=== PATIENT | male | born 1955 | race American Indian/Alaskan Native ===

== ENCOUNTER 2021-08-18 14:49 | Emergency (ER) | payer MEDICARE ==
[2021-08-18 14:55] VITALS: BP 146/82
--- NOTE | 2021-08-18 15:36 | Emergency Department Report ---
ED Extremity Problem HPI - General Chief complaint: Extremity Injury, Lower Stated complaint: GOUT PAIN LEFT FOOT Time Seen by Provider: 08/18/21 15:30 Source: patient Mode of arrival: Ambulatory Limitations: No Limitations - History of Present Illness Initial comments: The patient was evaluated in the emergency department for symptoms described in the history of present illness. He/she was evaluated in the context of the global COVID-19 pandemic, which necessitated consideration that the patient might be at risk for infection with the virus that causes COVID-19. Institutional protocols and algorithms that pertain to the evaluation of patients at risk for COVID-19 are in a state of rapid change based on information released by regulatory bodies including the CDC and federal and state organizations. These policies and algorithms were followed during the patient's care in the emergency department. Please note that these policies, procedures and recommendations changed on a rapid basis. 66-year-old -Citizen Of [place] male with a past medical history of hypertension and gout presents to the emergency room stating that he has had a 2 to 3-day left foot pain and swelling. Patient does admit that he had been having on the red meats for the last few days. States he has taken nothing for his pain. He came by both and not driving. Has an appointment with his primary care provider August 28. Denies any trauma. MD Complaint: joint swelling, joint paint Onset/Timin -: days(s) Location: left, toe History of Same: Yes -: Yes arthralgia (Great toe) Severity scale (0 -10): 8 Quality: aching, sharp Consistency: constant Improves with: nothing Worsens with: nothing Associated Symptoms: denies other symptoms - Related Data Home Medications Medication Instructions Recorded Confirmed Last Taken Colchicine [Colcrys] 0.6 mg PO BID 04/30/15 08/04/15 08/03/15 Previous Rx's Medication Instructions Recorded Last Taken Type Aspirin 325 mg PO QDAY #30 tablet 05/01/15 08/03/15 Rx AtorvaSTATin [Lipitor] 20 mg PO DAILY #30 tablet 05/01/15 08/03/15 Rx Potassium Chloride [K-Dur] 10 meq PO QDAY #30 tablet 05/01/15 08/03/15 Rx amLODIPine 10 mg PO DAILY #30 tablet 05/01/15 08/03/15 Rx carvediloL [Coreg] 12.5 mg PO BID #60 tablet 05/01/15 08/03/15 Rx hydroCHLOROthiazide [HCTZ] 25 mg PO QDAY #30 tablet 05/01/15 08/03/[address] [Harmeet Carrera] 75 mg PO Q12H #30 tablet 08/04/15 Unknown Rx predniSONE [Deltasone] 20 mg PO TID #15 tab 08/04/15 Unknown Rx Acetaminophen/Codeine [Tylenol #3] 1 tab PO Q6H PRN #20 tab 09/03/15 Unknown Rx Colchicine [Colcrys] 0.6 mg PO QDAY #10 tab 09/03/15 Unknown Rx Diclofenac Sodium 75 mg PO BID #20 tablet.dr 07/12/16 Unknown Rx Colchicine 0.6 mg PO BID #6 tablet 08/18/21 Unknown Rx Indomethacin 50 mg PO Q8H #12 capsule 08/18/21 Unknown Rx Prednisone [predniSONE 10 mg 10 mg PO .TAPER #1 tab.ds.pk 08/18/21 Unknown Rx (6-Day Pack, 21 Tabs)] traMADoL [Ultram 50 MG tab] 50 mg PO Q6HR PRN #20 tablet 08/18/21 Unknown Rx Allergies Allergy/AdvReac Type Severity Reaction Status Date / Time No Known Allergies Allergy Unverified 04/30/15 12:05 ED Review of Systems ROS: Stated complaint: GOUT PAIN LEFT FOOT Other details as noted in HPI Comment: All other systems reviewed and negative ED Past Medical Hx - Past Medical History Hx Hypertension: Yes Hx Congestive Heart Failure: No Hx Diabetes: No Hx Asthma: No Hx COPD: No Additional medical history: [place] 2011. Gout - Surgical History Additional Surgical History: 5 vessel bypass 2012 - Social History Smoking Status: Former Smoker Substance Use Type: Alcohol - Medications Home Medications: Home Medications Medication Instructions Recorded Confirmed Last Taken Type Colchicine [Colcrys] 0.6 mg PO BID 04/30/15 08/04/15 08/03/15 History Aspirin 325 mg PO QDAY #30 tablet 05/01/15 08/04/15 08/03/15 Rx AtorvaSTATin [Lipitor] 20 mg PO DAILY #30 tablet 05/01/15 08/04/15 08/03/15 Rx Potassium Chloride [K-Dur] 10 meq PO QDAY #30 tablet 05/01/15 08/04/15 08/03/15 Rx amLODIPine 10 mg PO DAILY #30 tablet 05/01/15 08/04/15 08/03/15 Rx carvediloL [Coreg] 12.5 mg PO BID #60 tablet 05/01/15 08/04/15 08/03/15 Rx hydroCHLOROthiazide [HCTZ] 25 mg PO QDAY #30 tablet 05/01/15 08/04/15 08/03/[address] [Harmeet Dr] 75 mg PO Q12H #30 tablet 08/04/15 Unknown Rx predniSONE [Deltasone] 20 mg PO TID #15 tab 08/04/15 Unknown Rx Acetaminophen/Codeine [Tylenol #3] 1 tab PO Q6H PRN #20 tab 09/03/15 Unknown Rx Colchicine [Colcrys] 0.6 mg PO QDAY #10 tab 09/03/15 Unknown Rx Diclofenac Sodium 75 mg PO BID #20 tablet.dr 07/12/16 Unknown Rx Colchicine 0.6 mg PO BID #6 tablet 08/18/21 Unknown Rx Indomethacin 50 mg PO Q8H #12 capsule 08/18/21 Unknown Rx Prednisone [predniSONE 10 mg 10 mg PO .TAPER #1 tab.ds.pk 08/18/21 Unknown Rx (6-Day Pack, 21 Tabs)] traMADoL [Ultram 50 MG tab] 50 mg PO Q6HR PRN #20 tablet 08/18/21 Unknown Rx ED Physical Exam - General Limitations: No Limitations ED Course Vital Signs 08/18/21 14:51 Pulse Rate 56 L Respiratory 18 Rate Blood Pressure 146/82 O2 Sat by Pulse 97 Oximetry ED Medical Decision Making - Medical Decision Making 66-year-old -Citizen Of [place] male with a past medical history of hypertension and gout presents to the emergency room stating that he has had a 2 to 3-day left foot pain and swelling. Patient does admit that he had been having on the red meats for the last few days. States he has taken nothing for his pain. He came by both and not driving. Has an appointment with his primary care provider August 28. Denies any trauma. Patient will be discharged with prescriptions for colchicine and indomethacin tramadol and to follow-up with his primary care provider. Critical care attestation.: If time is entered above; I have spent that time in minutes in the direct care of this critically ill patient, excluding procedure time. ED Disposition Clinical Impression: Acute gout Disposition: 01 HOME / SELF CARE / HOMELESS Is pt being admited?: No Does the pt Need Aspirin: No Condition: Stable Instructions: Low-Purine Eating Plan Additional Instructions: Please take pain medications and gout medication as prescribed. Do not operate heavy machinery while taking pain medicine. Follow-up with your primary care provider in the next 2 to 3 days for reevaluation. Be sure to increase your water intake while taking medication. Avoid alcohol and red meats as this is a trigger for gout. Prescriptions: Colchicine 0.6 mg PO BID #6 tablet Indomethacin 50 mg PO Q8H #12 capsule Prednisone [predniSONE 10 mg (6-Day Pack, 21 Tabs)] 10 mg PO .TAPER #1 tab.ds.pk traMADoL [Ultram 50 MG tab] 50 mg PO Q6HR PRN #20 tablet PRN Reason: Pain Referrals: Your, primary care provider [Other] - 3-5 Days Time of Disposition: 15:34
== END 2021-08-18 16:19 | disposition home or self-care (01) ==
LOC: ED 14:49
DX: M10.9 Gout, unspecified (principal); I10 Essential (primary) hypertension; Z87.891 Personal history of nicotine dependence
CPT/HCPCS: 99282